=== PATIENT | male | born 2000 | race Caucasian/White ===

== ENCOUNTER 2022-12-15 11:44 | Emergency (ER) | payer SELFPAY ==
[2022-12-15] MEDS ORDERED: Sodium Chloride 0.9% 1,000 ML IV ONE (11:58)
[2022-12-15] MEDS ORDERED: HYDROmorphone 0.5 MG/0.5 ML Syringe IVPUSH ONE (11:58)
[2022-12-15] MEDS ORDERED: Ondansetron 4 MG/2 ML SDV IVPUSH ONE (11:58)
[2022-12-15 12:56] LABS: ESTIMATED GFR 74 mL/min (>60)
== END 2022-12-15 13:46 | disposition home or self-care (01) ==
LOC: JD.ED 11:44
DX: N13.2 Hydronephrosis with renal and ureteral calculous obstruction (principal); Z86.16 Personal history of COVID-19
CPT/HCPCS: 36415; 74176; 80053; 81001; 85025; 86140; 96361; 96374; 96375; 99284; J1170; J2405; J7030

== ENCOUNTER 2023-08-18 11:42 | Emergency (ER) | payer MEDICAID ==
[2023-08-18 13:26] LABS: INFLUENZA A NAA NEGATIVE (NEGATIVE)
[2023-08-18 13:30] LABS: CORONAVIRUS COVID-19 NAA POSITIVE (NEGATIVE)
== END 2023-08-18 12:42 | disposition left against medical advice (07) ==
LOC: JD.ED 11:42
DX: Z53.21 Procedure and treatment not carried out due to patient leaving prior to being seen by health care provider (principal)
CPT/HCPCS: 0240U; 93005

== ENCOUNTER 2023-09-13 11:28 | Emergency (ER) | payer MEDICAID | END 2023-09-13 12:33 | disposition home or self-care (01) | LOC: JD.ED 11:28 | DX: S60.221A Contusion of right hand, initial encounter (principal); Z86.16 Personal history of COVID-19; W23.0XXA Caught, crushed, jammed, or pinched between moving objects, initial encounter | CPT/HCPCS: 73130-26-RT; 73130-RT; 99283 ==

== ENCOUNTER 2024-03-03 19:01 | Emergency (ER) | payer SELFPAY ==
[2024-03-03 20:15] LABS: HEMATOCRIT 48.7 % (42.0-52.0); HEMOGLOBIN 17.1 gm/dl (14.0-18.0); MEAN CORPUSCULAR HEMOGLOBIN 29.3 pg (28.0-32.0); MEAN CORPUSCULAR HGB CONC 35.1 g/dl (32.0-36.0); MEAN CORPUSCULAR VOLUME 83.5 fl (83.0-99.0); MEAN PLATELET VOLUME 8.3 fl (9.4-12.4); PLATELET COUNT,PLT 341 K/mm3 (150-400); RED BLOOD CELL COUNT 5.83 M/mm3 (4.52-5.90)
[2024-03-03 20:45] LABS: AMPHETAMINES SCREEN, URINE NEGATIVE (CUTOFF=500); BARBITURATE SCREEN,URINE NEGATIVE (CUTOFF=200); BENZODIAZEPINES SCREEN,URINE NEGATIVE (CUTOFF=150); BUPRENORPHINE SCREEN,URINE NEGATIVE (CUTOFF=10); METHADONE SCREEN, URINE NEGATIVE (CUT0FF=200); METHAMPHETAMINES SCREEN, URINE NEGATIVE (CUTOFF=500); OXYCODONE SCREEN,URINE NEGATIVE (CUT0FF=100); THC SCREEN,URINE 20 NG/ML NEGATIVE (CUTOFF=50)
[2024-03-03 20:49] LABS: A/G RATIO 1.1 (1-2); ALBUMIN 4.4 g/dl (3.4-5.0); ANION GAP 11.4 (5-15); BILIRUBIN TOTAL 0.4 mg/dL (0.2-1.0); BUN/CREATININE RATIO 13.3 (14-18); CALCIUM 9.6 mg/dL (8.5-10.1); CREATININE 1.2 mg/dL (0.7-1.3); EST CRCL DRUG DOSING (CG) 106.88 mL/min; POTASSIUM,K 4.4 mEq/L (3.5-5.1); PROTEIN TOTAL,TP 8.4 g/dl (6.4-8.2); TSH 1.103 uIU/mL (0.358-3.74)
[2024-03-03 21:13] LABS: BAND PERCENT MAN 1 % (0-10); BASOPHILS PERCENT MAN 0 (0.2-1.2); EOSINOPHILS PERCENT MAN 0 % (0.8-7.0); LYMPHOCYTES % ATYPICAL MANUAL 0 %; LYMPHOCYTES PERCENT MAN 18 % (20-40); MONOCYTES PERCENT MAN 1 % (2-10)
[2024-03-03 21:14] LABS: PLATELET COUNT ESTIMATE ADEQUATE
[2024-03-03] MEDS: Nicotine 14 MG/24 Hr Patch TRDERM ONE (22:33)
== END 2024-03-04 00:54 ==
LOC: JD.ED 19:01
DX: S92.902A Unspecified fracture of left foot, initial encounter for closed fracture (principal); R45.851 Suicidal ideations; Z86.16 Personal history of COVID-19; X58.XXXA Exposure to other specified factors, initial encounter
CPT/HCPCS: 36415; 73610; 73630; 80053; 80143; 80179; 80306; 80307; 84443; 85007; 85027; 93005; 99285; A9270; 93010

== ENCOUNTER 2024-06-22 16:02 | Emergency (ER) | payer SELFPAY ==
[2024-06-22 16:56] LABS: BASOPHILS PERCENT AUTO 0.2 % (0.0-1.0); EOSINOPHILS PERCENT AUTO 0.3 % (0.0-6.0); HEMATOCRIT 48.7 % (42.0-52.0); HEMOGLOBIN 16.7 gm/dl (14.0-18.0); IMMATURE GRAN ABSOLUTE AUTO 0.04 K/mm3 (0.00-0.05); IMMATURE GRAN PERCENT AUTO 0.3 % (0.0-0.4); LYMPHOCYTES ABSOLUTE AUTO 1.8 K/mm3 (1.0-4.8); LYMPHOCYTES PERCENT AUTO 15.9 % (24.0-44.0); MEAN CORPUSCULAR HEMOGLOBIN 28.5 pg (28.0-32.0); MEAN CORPUSCULAR HGB CONC 34.3 g/dl (32.0-36.0); MEAN CORPUSCULAR VOLUME 83.2 fl (83.0-99.0); MEAN PLATELET VOLUME 8.4 fl (9.4-12.4); MONOCYTES ABSOLUTE AUTO 0.5 K/mm3 (0.0-0.8); MONOCYTES PERCENT AUTO 4.5 % (0.0-8.0); NEUTROPHILS PERCENT AUTO 78.8 % (41.0-71.0); PLATELET COUNT,PLT 303 K/mm3 (150-400); RED BLOOD CELL COUNT 5.85 M/mm3 (4.52-5.90); WHITE BLOOD CELL COUNT,WBC 11.44 K/mm3 (3.9-11.3)
[2024-06-22 17:18] LABS: A/G RATIO 1.4 (1-2); ALBUMIN 4.7 g/dl (3.4-5.0); ANION GAP 14.4 (5-15); BILIRUBIN TOTAL 0.8 mg/dL (0.2-1.0); BUN/CREATININE RATIO 8.5 (14-18); C-REACTIVE PROTEIN 0.06 mg/dL (<0.30); CALCIUM 9.7 mg/dL (8.5-10.1); CREATININE 1.3 mg/dL (0.7-1.3); EST CRCL DRUG DOSING (CG) 96.62 mL/min; POTASSIUM,K 4.4 mEq/L (3.5-5.1); PROTEIN TOTAL,TP 8.1 g/dl (6.4-8.2)
[2024-06-22 17:20] LABS: LACTIC ACID 1.4 mmol/L (0.4-2.0)
[2024-06-22] MEDS: Sodium Chloride 0.9% 10 ML Syringe FLUSH ONE (18:10)
[2024-06-22] MEDS: Iopamidol 612 MG/ML 100 ML Bottle IVPUSH ONE (18:10)
== END 2024-06-22 19:11 | disposition home or self-care (01) ==
LOC: JD.ED 16:02
DX: K52.9 Noninfective gastroenteritis and colitis, unspecified (principal); Z86.16 Personal history of COVID-19
CPT/HCPCS: 36415; 74177; 80053; 83605; 83690; 85025; 86140; 99284; J3490; Q9967

== ENCOUNTER 2025-08-07 07:26 | Emergency (ER) | payer SELFPAY | END 2025-08-07 09:07 | disposition home or self-care (01) | LOC: JD.ED 07:26 | DX: J06.9 Acute upper respiratory infection, unspecified (principal); Z86.16 Personal history of COVID-19; Z79.52 Long term (current) use of systemic steroids; Z79.51 Long term (current) use of inhaled steroids | CPT/HCPCS: 71045; 71045-26; 87428-QW; 99283 ==